=== PATIENT | female | born 1970 | race Caucasian/White ===

== ENCOUNTER 2017-05-29 09:53 | Emergency (ER) | payer MEDICAID ==
[~2017-05-29] VITALS: Ht 152.4 cm; Wt 71.0 kg
[2017-05-29 09:58] VITALS: Ht 152.4 cm; Wt 71.0 kg
[2017-05-29] MEDS ORDERED: ONDANSETRON 4 MG INJ IV STA (10:49)
[2017-05-29] MEDS ORDERED: morphine 4 MG/ML VIAL IV STA (10:49)
[2017-05-29] MEDS ORDERED: SOD CHLORIDE 0.9% 1,000 ML IV STA (10:49)
[2017-05-29] MEDS ORDERED: FAMOTIDINE 20 MG INJ IV ONE (11:00)
[2017-05-29 11:26] LABS: HEMATOCRIT 38.8 % (37.0-47.0); HEMOGLOBIN 13.9 g/dl (12.0-16.0); LYMPHOCYTES % 40.8 % (15.0-51.0); MEAN CORPUSCULAR HEMOGLOBIN 30.8 pg (29.0-33.0); MEAN CORPUSCULAR HGB CONC 35.8 g/dl (32.0-37.0); MEAN CORPUSCULAR VOLUME 85.8 fl (82.0-101.0); MEAN PLATELET VOLUME 9.7 fl (7.4-10.4); NEUTROPHILS % 47.4 % (39.0-77.0); PLATELET COUNT 306 10^3/UL (140-415); RED BLOOD COUNT 4.52 10^6/ul (4.20-5.40); RED CELL DISTRIBUTION WIDTH 12.3 % (11.5-14.5); WHITE BLOOD COUNT 7.1 10^3/ul (4.8-10.8)
[2017-05-29 11:27] LABS: BASOPHIL # 0.1 10^3/ul (0.0-0.1); BASOPHILS % 1.8 % (0.0-2.0); EOSINOPHILS # 0.3 10^3/ul (0.0-0.5); EOSINOPHILS % 3.6 % (0.0-7.0); LYMPHOCYTES # 2.9 10^3/ul (0.8-2.9); MONOCYTE # 0.5 10^3/ul (0.3-0.9); MONOCYTES % 6.3 % (0.0-11.0)
[2017-05-29 11:37] LABS: ADD UMIC YES; UR ASCORBIC ACID NEGATIVE (NEGATIVE); UR BILIRUBIN (Dip) NEGATIVE (NEGATIVE); UR BLOOD (Dip) 2+ mg/dL (NEGATIVE); UR CLARITY CLEAR (CLEAR); UR COLOR YELLOW (YELLOW); UR GLUCOSE (Dip) NEGATIVE (NEGATIVE); UR KETONES (Dip) NEGATIVE (NEGATIVE); UR LEUKOCYTE ESTERASE (Dip) NEGATIVE Leu/ul (NEGATIVE); UR NITRITE (Dip) NEGATIVE (NEGATIVE); UR RBC 6 /HPF (0-5); UR SPECIFIC GRAVITY (Dip) 1.013 (1.003-1.030); UR TOTAL PROTEIN (Dip) NEGATIVE (NEGATIVE); UR UROBILINOGEN (Dip) NEGATIVE (NEGATIVE)
[2017-05-29 11:54] LABS: ALBUMIN 4.3 g/dl (3.3-4.9); ALBUMIN/GLOBULIN RATIO 1.3; BILIRUBIN,INDIRECT 0.3 mg/dl (0-1.1); BILIRUBIN,TOTAL 0.3 mg/dl (0.2-1.3); CALCIUM 9.2 mg/dl (8.4-10.2); CREATININE 0.61 mg/dl (0.44-1.00); POTASSIUM 3.9 mmol/L (3.5-5.1); TOTAL PROTEIN 7.6 g/dl (6.1-8.1)
--- NOTE | 2017-05-29 12:40 | RADRPT ---
PROCEDURE: CT Abdomen and Pelvis without contrast CLINICAL INDICATION: Right lower quadrant pain times 2 days, vomiting TECHNIQUE: Transaxial images were obtained through the abdomen and pelvis on a multi-slice scanner without the intravenous contrast administration. No oral contrast had previously been given. Sagit pérez and coronal re-formations were subsequently reconstructed. One or more of the following dose reduction techniques were used: - Automated exposure control. - Adjustment of the mA and/or kV according to patient size. - Use of iterative reconstruction technique. Radiation dose: CTDIvol = 17.25 mGy; DLP = 945.66 mGy-cm. COMPARISON: No prior studies are available for comparison. FINDINGS: Lung bases: Appear unremarkable except for a a 6 mm calcified granuloma within the medial right lowe r lobe. Liver: The liver is upper normal in size and appears diffusely fatty infiltrated with no focal lesio n. Gallbladder: There is cholelithiasis but the gallbladder wall is not thickened. Bile ducts: The intra and extrahepatic bile ducts are normal in caliber. Pancreas: Appears normal with no mass or inflammation evident. Spleen: Normal in size with no focal lesion. Adrenals: Normal with no mass identified. Kidneys, ureters and bladder: The kidneys are normal in size and there is no mass, pathological calc ification, or hydronephrosis evident. There is no perinephric stranding. The ureters are normal in c aliber and no ureteroliths are identified. The bladder appears unremarkable. Reproductive organs: The uterus deviates to the right of midline. There appear to be tubal ligation clips. No adnexal mass is evident. Stomach and bowel: The stomach appears unremarkable. No there is no evidence of bowel obstruction o r inflammation. Appendix: The vermiform appendix is prominent in caliber measuring 7 mm but no significant inflammat ory changes seen in the adjacent fat. Peritoneum: No free intraperitoneal fluid or air is identified. There is a small fat containing umbi lical hernia. Aorta: Normal in caliber with no aneurysmal dilatation. IVC: Unremarkable. Lymph nodes: No pathologically enlarged nodes are identified. Osseous structures: The osseous elements appear intact. IMPRESSION: 1. The vermiform appendix is prominent in caliber measuring 7 mm. There is no significant inflamma tory change seen in the fat around the appendix. This likely represents a normal variant, but clinic al correlation is indicated to exclude early appendicitis. There is no evidence of bowel obstruction or inflammation. 2. Normal kidneys without evidence of urinary outflow obstruction or ureterolithiasis. The bladder appears unremarkable. 3. Cholelithiasis not associated with gallbladder wall thickening or bile duct dilatation. The panc reas appears normal. 4. Fatty infiltrated liver. 5. There is no free intraperitoneal fluid or air. 6. 6 mm calcified granuloma seen in the medial left lower lobe. Physician Constantin Date Time Electronically viewed and signed by Rebecca Sierra Physician on 05/29/2017 12:40 RH/
[2017-05-29] MEDS ORDERED: ACET325T33 PO (13:42)
[2017-05-29] MEDS ORDERED: ONDA4TAB14 PO (13:42)
[2017-05-29] MEDS ORDERED: DICY10CA60 PO (13:42)
--- NOTE | 2017-05-29 13:48 | ERD ---
ER Documentation Chief Complaint Date/Time DATE: 05/29/17 TIME: 13:44 Chief Complaint RIGHT ABDOMINAL PAIN SINCE YESTERDAY, + VOMITING HPI 37-year-old female patient with no significant past medical history presents the ED complaining of right-sided abdominal pain that started yesterday. Predominantly in the upper and lower right lower quadrant regions. Describes it as sharp. Reports that she has had a few episodes of nonbilious nonbloody vomiting. States that her last menses was on May 22, 2017. Denies any vaginal discharge, vaginal bleeding, dysuria, urgency, frequency, diarrhea, constipation, fever. ROS All systems reviewed and are negative except as per history of present illness. Medications Home Meds Active Scripts Ibuprofen* (Motrin*) 600 Mg Tab, 600 MG PO Q6, #20 TAB Prov:FIONA HARMON MD 05/31/17 Ondansetron (Ondansetron Odt) 8 Mg Tab.rapdis, 8 MG PO Q6H Y for NAUSEA AND/OR VOMITING, #10 TAB Prov:FIONA HARMON MD 05/31/17 Tramadol HCl (Tramadol HCl) 50 Mg Tablet, 50 MG PO Q4 Y for PAIN, #20 TAB Prov:FIONA HARMON MD 05/31/17 Acetaminophen* (Tylenol*) 325 Mg Tablet, 2 TAB PO Q8 Y for PAIN AND OR ELEVATED TEMP, #20 TAB Prov:UNIQUE COYNE PA-C 05/29/17 Ondansetron (Ondansetron Odt) 4 Mg Tab.rapdis, 4 MG PO Q6H Y for NAUSEA AND/OR VOMITING, #10 TAB Prov:UNIQUE COYNE PA-C 05/29/17 Dicyclomine Hcl* (Bentyl*) 10 Mg Capsule, 10 MG PO QID, #20 CAP Prov:UNIQUE COYNE PA-C 05/29/17 Allergies Allergies: Coded Allergies: No Known Allergy (Unverified , 05/29/17) PMhx/Soc Medical and Surgical Hx: pt denies Medical Hx History of Surgery: Yes (Tubal ligation) Hx Alcohol Use: No Hx Substance Use: No Hx Tobacco Use: No Smoking Status: Never smoker Physical Exam Vitals Vital Signs Date Time Temp Pulse Resp B/P Pulse Ox O2 Delivery O2 Flow Rate FiO2 05/29/17 09:58 98.0 87 18 181/95 100 Physical Exam Const: [id number], well-nourished. In no acute distress. Head: Atraumatic, normocephalic Eyes: Normal Conjunctiva without injection. No purulent discharge. ENT: Normal external ear, nose. Moist oropharynx without tonsillar exudates. Non -erythematous pharynx. Uvula midline. No drooling. No trismus. Neck: No cervical midline tenderness. Full range of motion. No meningismus. No cervical lymphadenopathy. No JVD. Resp: Clear to auscultation bilaterally. No wheezing, rhonchi, rales, or crackles. No accessory muscle use. No retractions. Cardio: Regular rate and rhythm. No murmurs, rubs or gallops. Abd: Soft, right upper and lower quadrant abdominal tenderness, non distended. Normal bowel sounds. No palpable masses. No rebound tenderness. No guarding. Negative McBurney's point. Negative psoas sign. Negative obturator sign. Skin: No petechiae or rashes Back: No midline tenderness. No CVA tenderness. Ext: No cyanosis, or edema. Neur: Awake and alert. Normal gait. Normal coordination. Psych: Normal Mood and Affect Results 24 hrs Laboratory Tests Test 05/29/17 11:00 05/29/17 11:15 Urine Color YELLOW Urine Clarity CLEAR Urine pH 7.0 Urine Specific [place] 1.013 Urine Ketones NEGATIVEmg/dL Urine Nitrite NEGATIVEmg/dL Urine Bilirubin NEGATIVEmg/dL Urine Urobilinogen NEGATIVEmg/dL Urine Leukocyte Esterase NEGATIVELeu/ul Urine Microscopic RBC 6/HPF Urine Microscopic WBC 2/HPF Urine Hemoglobin 2+mg/dL Urine Glucose NEGATIVEmg/dL Urine Total Protein NEGATIVEmg/dl White Blood Count 7.110^3/ul Red Blood Count 4.5210^6/ul Hemoglobin 13.9g/dl Hematocrit 38.8% Mean Corpuscular Volume 85.8fl Mean Corpuscular Hemoglobin 30.8pg Mean Corpuscular Hemoglobin Concent 35.8g/dl Red Cell Distribution Width 12.3% Platelet Count 81759^3/UL Mean Platelet Volume 9.7fl Neutrophils % 47.4% Lymphocytes % 40.8% Monocytes % 6.3% Eosinophils % 3.6% Basophils % 1.8% Nucleated Red Blood Cells % 0.0/100WBC Neutrophils # (Manual) 310^3/ul Lymphocytes # 2.910^3/ul Monocytes # 0.510^3/ul Eosinophils # 0.310^3/ul Basophils # 0.110^3/ul Nucleated Red Blood Cells # 0.010^3/ul Sodium Level 143mmol/L Potassium Level 3.9mmol/L Chloride Level 100mmol/L Carbon Dioxide Level 29mmol/L Anion Gap 18 Blood Urea Nitrogen 12mg/dl Creatinine 0.61mg/dl Glucose Level 83mg/dl Calcium Level 9.2mg/dl Total Bilirubin 0.3mg/dl Direct Bilirubin 0.00mg/dl Indirect Bilirubin 0.3mg/dl Aspartate Amino Transf (AST/SGOT) 22IU/L Alanine Aminotransferase (ALT/SGPT) 37IU/L Alkaline Phosphatase 108IU/L Total Protein 7.6g/dl Albumin 4.3g/dl Globulin 3.30g/dl Albumin/Globulin Ratio 1.30 Lipase 111U/L Current Medications Medications (Trade) Dose Ordered Sig/Shaun Route PRN Reason Start Time Stop Time Status Last Admin Dose Admin Sodium Chloride (NS) 1,000 ml @ 1,000 mls/hr Q1H STAT IV 05/29/17 10:49 05/29/17 11:48 DC 05/29/17 11:31 Morphine Sulfate (morphine) 4 mg ONCE STAT IV 05/29/17 10:49 05/29/17 10:51 DC 05/29/17 11:30 Ondansetron HCl (Zofran Inj) 4 mg ONCE STAT IV 05/29/17 10:49 05/29/17 10:51 DC 05/29/17 11:30 Famotidine (Pepcid Iv) 20 mg ONCE ONCE IV 05/29/17 11:00 05/29/17 11:01 DC 05/29/17 11:30 Procedures/MDM This is a 47-year-old female patient with no significant past medical history presents to the ED complaining of abdominal pain and vomiting. Patient is afebrile and nontoxic-appearing. Patient has normal vital signs. Patient was further worked up with CBC, CMP, lipase, UA, urine , CT of abdomen and pelvis without contrast. Patient's pain and symptoms have improved after treatment with 4 mg IV Morphine, 4 mg IV Zofran. CBC: No leukocytosis. No e/o of systemic infection. No e/o anemia. CMP: No e/o severe acidosis, alkalosis, renal failure, diabetic ketoacidosis, liver disease Lipase within normal limits. Urine: No leukocyte esterase, no nitrites, no hematuria. Urine : negative PROCEDURE: CT Abdomen and Pelvis without contrast CLINICAL INDICATION: Right lower quadrant pain times 2 days, vomiting TECHNIQUE: Transaxial images were obtained through the abdomen and pelvis on a multi-slice scanner without the intravenous contrast administration. No oral contrast had previously been given. Sagittal and coronal re-formations were subsequently reconstructed. One or more of the following dose reduction techniques were used: - Automated exposure control. - Adjustment of the mA and/or kV according to patient size. - Use of iterative reconstruction technique. Radiation dose: CTDIvol = 17.25 mGy; DLP = 945.66 mGy-cm. COMPARISON: No prior studies are available for comparison. FINDINGS: Lung bases: Appear unremarkable except for a a 6 mm calcified granuloma within the medial right lower lobe. Liver: The liver is upper normal in size and appears diffusely fatty infiltrated with no focal lesion. Gallbladder: There is cholelithiasis but the gallbladder wall is not thickened. Bile ducts: The intra and extrahepatic bile ducts are normal in caliber. Pancreas: Appears normal with no mass or inflammation evident. Spleen: Normal in size with no focal lesion. Adrenals: Normal with no mass identified. Kidneys, ureters and bladder: The kidneys are normal in size and there is no mass, pathological calcification, or hydronephrosis evident. There is no perinephric stranding. The ureters are normal in caliber and no ureteroliths are identified. The bladder appears unremarkable. Reproductive organs: The uterus deviates to the right of midline. There appear to be tubal ligation clips. No adnexal mass is evident. Stomach and bowel: The stomach appears unremarkable. No there is no evidence of bowel obstruction or inflammation. Appendix: The vermiform appendix is prominent in caliber measuring 7 mm but no significant inflammatory changes seen in the adjacent fat. Peritoneum: No free intraperitoneal fluid or air is identified. There is a small fat containing umbilical hernia. Aorta: Normal in caliber with no aneurysmal dilatation. IVC: Unremarkable. Lymph nodes: No pathologically enlarged nodes are identified. Osseous structures: The osseous elements appear intact. IMPRESSION: 1. The vermiform appendix is prominent in caliber measuring 7 mm. There is no significant inflammatory change seen in the fat around the appendix. This likely represents a normal variant, but clinical correlation is indicated to exclude early appendicitis. There is no evidence of bowel obstruction or inflammation. 2. Normal kidneys without evidence of urinary outflow obstruction or ureterolithiasis. The bladder appears unremarkable. 3. Cholelithiasis not associated with gallbladder wall thickening or bile duct dilatation. The pancreas appears normal. 4. Fatty infiltrated liver. 5. There is no free intraperitoneal fluid or air. 6. 6 mm calcified granuloma seen in the medial left lower lobe. Patient likely has biliary colic due to a confirmed gallstone. Low suspicion for gastritis, GERD, peptic ulcer disease, cholecystitis, choledocholithiasis, cholangitis, pancreatitis, appendicitis, bowel obstruction, ileus, volvulus, nephrolithiasis, pyelonephritis, hepatitis, perforated viscus, diverticulitis, abdominal hernia, acute abdomen, mesenteric ischemia or other emergent conditions. This case was discussed with my supervising physician Dr. Harmon who agreed with the management and discharge plan. Discharge medications: Tylenol, Zofran, Bentyl Follow up with primary care physician in 1-2 days for referral to a general surgeon. Instructed patient to return to the ED sooner for any worsening symptoms. Patient's questions were answered. Patient understood and agreed with discharge plan. Patient discharged stable. Departure Diagnosis: Primary Impression: Abdominal pain Abdominal location: unspecified location Qualified Code: R10.9 - Abdominal pain, unspecified location Condition: Stable Patient Instructions: Abdominal Pain Referrals: [facility] YOU HAVE RECEIVED A MEDICAL SCREENING EXAM AND THE RESULTS INDICATE THAT YOU DO NOT HAVE A CONDITION THAT REQUIRES URGENT TREATMENT IN THE EMERGENCY DEPARTMENT. FURTHER EVALUATION AND TREATMENT OF YOUR CONDITION CAN WAIT UNTIL YOU ARE SEEN IN YOUR DOCTORS OFFICE WITHIN THE NEXT 1-2 DAYS. IT IS YOUR RESPONSIBILITY TO MAKE AN APPOINTMENT FOR FOLOW-UP CARE. IF YOU HAVE A PRIMARY DOCTOR --you should call your primary doctor and schedule an appointment IF YOU DO NOT HAVE A PRIMARY DOCTOR YOU CAN CALL OUR PHYSICIAN REFERRAL HOTLINE AT IF YOU CAN NOT AFFORD TO SEE A PHYSICIAN YOU CAN CHOSE FROM THE FOLLOWING [facility] [address] [facility]. [facility] [address] [facility] [address] [facility] [address] [facility] [address] [facility]. [facility]. [address] [facility]. [facility] YOU HAVE RECEIVED A MEDICAL SCREENING EXAM AND THE RESULTS INDICATE THAT YOU DO NOT HAVE A CONDITION THAT REQUIRES URGENT TREATMENT IN THE EMERGENCY DEPARTMENT. FURTHER EVALUATION AND TREATMENT OF YOUR CONDITION CAN WAIT UNTIL YOU ARE SEEN IN YOUR DOCTORS OFFICE WITHIN THE NEXT 1-2 DAYS. IT IS YOUR RESPONSIBILITY TO MAKE AN APPOINTMENT FOR FOLOW-UP CARE. IF YOU HAVE A PRIMARY DOCTOR --you should call your primary doctor and schedule and appointment IF YOU DO NOT HAVE A PRIMARY DOCTOR YOU CAN CALL OUR PHYSICIAN REFERRAL HOTLINE AT . IF YOU CAN NOT AFFORD TO SEE A PHYSICIAN YOU CAN CHOSE FROM THE FOLLOWING [facility] INSTITUTIONS: [facility] [address] [place] [address] [facility] [address] [place] [address] [facility] + [facility] [address] [place] [address] [facility] URGENT CARE/SPECIALTIES Additional Instructions: Llame al doctor MAANA y agustín jostin ANISHA PARA DENTRO DE 2-3 MARCH.Dgale a la secretaria que nosotros le instruimos hacer esta anisha.Avise o llame si gauthier condicin se empeora antes de la anisha. Regresa aqui si peor o no mejor. UNIQUE COYNE PA-C May 29, 2017 13:48
[2017-05-29 14:30] VITALS: BP 138/83; PULSE 78; RESP 20
== END 2017-05-29 14:30 | disposition home or self-care (01) ==
LOC: FTE 09:53
DX: R10.31 Right lower quadrant pain (principal); R11.10 Vomiting, unspecified; R10.11 Right upper quadrant pain
CPT/HCPCS: 36415; 74176; 80053; 81001; 83690; 85025; 96374; 96375; J2270; J2405; J7030; Z7502; Z7610

== ENCOUNTER 2017-05-31 13:17 | Emergency (ER) | payer MEDICAID ==
[~2017-05-31] VITALS: Wt 70.5 kg
[~2017-05-31 13:17] MED LIST: ACET325T33 PO; DICY10CA60 PO; ONDA4TAB14 PO
[2017-05-31] MEDS ORDERED: KETOROLAC 30 MG INJ IV STA (14:44)
[2017-05-31] MEDS ORDERED: SOD CHLORIDE 0.9% 1,000 ML IV STA (14:44)
[2017-05-31] MEDS ORDERED: ONDANSETRON 4 MG INJ IV STA (14:44)
[2017-05-31] MEDS ORDERED: morphine 4 MG/ML VIAL IV STA (14:44)
[2017-05-31 15:24] LABS: ADD UMIC YES; UR ASCORBIC ACID NEGATIVE (NEGATIVE); UR BILIRUBIN (Dip) NEGATIVE (NEGATIVE); UR BLOOD (Dip) 2+ mg/dL (NEGATIVE); UR CLARITY CLEAR (CLEAR); UR COLOR YELLOW (YELLOW); UR GLUCOSE (Dip) NEGATIVE (NEGATIVE); UR KETONES (Dip) NEGATIVE (NEGATIVE); UR LEUKOCYTE ESTERASE (Dip) NEGATIVE Leu/ul (NEGATIVE); UR NITRITE (Dip) NEGATIVE (NEGATIVE); UR RBC 4 /HPF (0-5); UR TOTAL PROTEIN (Dip) NEGATIVE (NEGATIVE); UR UROBILINOGEN (Dip) NEGATIVE (NEGATIVE)
[2017-05-31 15:25] LABS: BASOPHIL # 0.1 10^3/ul (0.0-0.1); BASOPHILS % 1.3 % (0.0-2.0); EOSINOPHILS # 0.2 10^3/ul (0.0-0.5); EOSINOPHILS % 2.8 % (0.0-7.0); HEMATOCRIT 39.3 % (37.0-47.0); LYMPHOCYTES # 2.3 10^3/ul (0.8-2.9); LYMPHOCYTES % 34.2 % (15.0-51.0); MEAN CORPUSCULAR HEMOGLOBIN 30.5 pg (29.0-33.0); MEAN CORPUSCULAR HGB CONC 35.6 g/dl (32.0-37.0); MEAN CORPUSCULAR VOLUME 85.6 fl (82.0-101.0); MEAN PLATELET VOLUME 9.8 fl (7.4-10.4); MONOCYTE # 0.4 10^3/ul (0.3-0.9); MONOCYTES % 6.5 % (0.0-11.0); NEUTROPHILS % 54.9 % (39.0-77.0); PLATELET COUNT 297 10^3/UL (140-415); RED BLOOD COUNT 4.59 10^6/ul (4.20-5.40); RED CELL DISTRIBUTION WIDTH 12.4 % (11.5-14.5); WHITE BLOOD COUNT 6.8 10^3/ul (4.8-10.8)
--- NOTE | 2017-05-31 15:33 | RADRPT ---
PROCEDURE: Abdominal Ultrasound (right upper quadrant). CLINICAL INDICATION: Abdominal pain TECHNIQUE: Multiple real-time longitudinal and transverse images of the right upper quadrant of th e abdomen were acquired utilizing a curved array transducer. Images were reviewed on a high-resoluti on PACS workstation. COMPARISON: CT abdomen pelvis 05/29/2017 FINDINGS: The liver demonstrates increased echogenicity consistent with fatty infiltration. The liver is mild ly enlarged. No focal masses are identified. There is no evidence of intra or extrahepatic ductal dilatation. The common bile duct measures 2.0 mm in diameter. Multiple gallstones are identified wi thin the gallbladder. There is no gallbladder wall thickening. The visualized portions of the pancreas are unremarkable with obscuration of the tail of the pancrea s. No free fluid is identified. There is no evidence of right hydronephrosis or renal calcification. The right kidney measures 9.8 cm in length. The visualized portions of the aorta and inferior vena cava are within normal limits. IMPRESSION: 1. Cholelithiasis. 2. Enlarged, fatty liver. RPTAT: KK .Jose Enrique Daily MD, MD Date Time Electronically viewed and signed by .Jose Enrique Daily MD, MD on 05/31/2017 15:33 .B/
[2017-05-31 15:53] LABS: ALBUMIN 4.6 g/dl (3.3-4.9); ALBUMIN/GLOBULIN RATIO 1.27; BILIRUBIN,INDIRECT 0.7 mg/dl (0-1.1); BILIRUBIN,TOTAL 0.7 mg/dl (0.2-1.3); CALCIUM 9.1 mg/dl (8.4-10.2); CREATININE 0.67 mg/dl (0.44-1.00); POTASSIUM 3.8 mmol/L (3.5-5.1); TOTAL PROTEIN 8.2 g/dl (6.1-8.1)
[2017-05-31] MEDS ORDERED: ONDA8TAB14 PO (16:05)
[2017-05-31] MEDS ORDERED: TRAM50TA2 PO (16:05)
[2017-05-31] MEDS ORDERED: IBUP-1542 PO (16:05)
--- NOTE | 2017-05-31 16:10 | ERD ---
ER Documentation Chief Complaint Date/Time DATE: 05/31/17 TIME: 16:07 Chief Complaint r. sided abd pain w n/v HPI This 47-year-old female presents with right upper side abdominal pain and vomiting last 2 days. She was seen here 2 days ago diagnosed with gallstones and was well briefly until return of pain and vomiting. She denies fevers or lower abdominal pain. She denies previous history of gallstones or similar pain ROS All systems reviewed and are negative except as per history of present illness. Medications Home Meds Active Scripts Ibuprofen* (Motrin*) 600 Mg Tab, 600 MG PO Q6, #20 TAB Prov:FIONA WASHINGTON MD 05/31/17 Ondansetron (Ondansetron Odt) 8 Mg Tab.rapdis, 8 MG PO Q6H Y for NAUSEA AND/OR VOMITING, #10 TAB Prov:FIONA WASHINGTON MD 05/31/17 Tramadol HCl (Tramadol HCl) 50 Mg Tablet, 50 MG PO Q4 Y for PAIN, #20 TAB Prov:FIONA WASHINGTON MD 05/31/17 Acetaminophen* (Tylenol*) 325 Mg Tablet, 2 TAB PO Q8 Y for PAIN AND OR ELEVATED TEMP, #20 TAB Prov:UNIQUE COYNE PA-C 05/29/17 Ondansetron (Ondansetron Odt) 4 Mg Tab.rapdis, 4 MG PO Q6H Y for NAUSEA AND/OR VOMITING, #10 TAB Prov:UNIQUE COYNE PA-C 05/29/17 Dicyclomine Hcl* (Bentyl*) 10 Mg Capsule, 10 MG PO QID, #20 CAP Prov:UNIQUE COYNE PA-C 05/29/17 Allergies Allergies: Coded Allergies: No Known Allergy (Unverified , 05/29/17) PMhx/Soc History of Surgery: Yes (Tubal ligation) Hx Alcohol Use: No Hx Substance Use: No Hx Tobacco Use: No Smoking Status: Never smoker Physical Exam Vitals Vital Signs Date Time Temp Pulse Resp B/P Pulse Ox O2 Delivery O2 Flow Rate FiO2 05/31/17 13:20 98.9 82 20 156/74 98 Physical Exam Const: [] Alert, [id number] per Head: Atraumatic Eyes: Normal Conjunctiva ENT: Normal External Ears, Nose and Mouth. Neck: Full range of motion..~ No meningismus. Resp: Clear to auscultation bilaterally Cardio: Regular rate and rhythm, no murmurs Abd: Soft, right upper quadrant tenderness without rebound. No tenderness at McBurney's point., non distended. Normal bowel sounds Skin: No petechiae or rashes Back: No midline or flank tenderness Ext: No cyanosis, or edema Neur: Awake and alert Psych: Normal Mood and Affect Result Diagram: 05/31/17 1505 05/31/17 1505 Results 24 hrs Laboratory Tests Test 05/31/17 14:50 05/31/17 15:05 Urine Color YELLOW Urine Clarity CLEAR Urine pH 6.0 Urine Specific [place] 1.010 Urine Ketones NEGATIVEmg/dL Urine Nitrite NEGATIVEmg/dL Urine Bilirubin NEGATIVEmg/dL Urine Urobilinogen NEGATIVEmg/dL Urine Leukocyte Esterase NEGATIVELeu/ul Urine Microscopic RBC 4/HPF Urine Microscopic WBC 1/HPF Urine Hemoglobin 2+mg/dL Urine Glucose NEGATIVEmg/dL Urine Total Protein NEGATIVEmg/dl White Blood Count 6.810^3/ul Red Blood Count 4.5910^6/ul Hemoglobin 14.0g/dl Hematocrit 39.3% Mean Corpuscular Volume 85.6fl Mean Corpuscular Hemoglobin 30.5pg Mean Corpuscular Hemoglobin Concent 35.6g/dl Red Cell Distribution Width 12.4% Platelet Count 42123^3/UL Mean Platelet Volume 9.8fl Neutrophils % 54.9% Lymphocytes % 34.2% Monocytes % 6.5% Eosinophils % 2.8% Basophils % 1.3% Nucleated Red Blood Cells % 0.0/100WBC Neutrophils # (Manual) 410^3/ul Lymphocytes # 2.310^3/ul Monocytes # 0.410^3/ul Eosinophils # 0.210^3/ul Basophils # 0.110^3/ul Nucleated Red Blood Cells # 0.010^3/ul Sodium Level 139mmol/L Potassium Level 3.8mmol/L Chloride Level 101mmol/L Carbon Dioxide Level 27mmol/L Anion Gap 15 Blood Urea Nitrogen 10mg/dl Creatinine 0.67mg/dl Glucose Level 88mg/dl Calcium Level 9.1mg/dl Total Bilirubin 0.7mg/dl Direct Bilirubin 0.00mg/dl Indirect Bilirubin 0.7mg/dl Aspartate Amino Transf (AST/SGOT) 23IU/L Alanine Aminotransferase (ALT/SGPT) 40IU/L Alkaline Phosphatase 93IU/L Total Protein 8.2g/dl Albumin 4.6g/dl Globulin 3.60g/dl Albumin/Globulin Ratio 1.27 Lipase 80U/L Current Medications Medications (Trade) Dose Ordered Sig/Shaun Route PRN Reason Start Time Stop Time Status Last Admin Dose Admin Sodium Chloride (NS) 1,000 ml @ 1,000 mls/hr Q1H STAT IV 05/31/17 14:44 05/31/17 15:43 DC 05/31/17 15:09 Morphine Sulfate (morphine) 4 mg ONCE STAT IV 05/31/17 14:44 05/31/17 14:47 DC Ondansetron HCl (Zofran Inj) 4 mg ONCE STAT IV 05/31/17 14:44 05/31/17 14:47 DC 05/31/17 15:09 Ketorolac Tromethamine (Toradol) 30 mg ONCE STAT IV 05/31/17 14:44 05/31/17 14:47 DC 05/31/17 15:10 Procedures/MDM Patient is given morphine 4 mg IV Toradol 30 mg IV and Zofran 4 mg IV. CBC and CMP and lipase normal Quadrant ultrasound shows gallstones without evidence of obstruction or cholecystitis. Patient felt better after observation treatment. Patient presents with signs and symptoms of biliary colic without evidence of obstruction, cholecystitis, signs of appendicitis, obstruction, acute abdomen, UTI or pyelonephritis. She will treated with tramadol, and Zofran ibuprofen and primary care and general surgery follow-up. The patient was stable with no new complaints during the ER course. Clinically, there is no current evidence to suggest meningitis, sepsis, acute abdomen, pneumonia, acute coronary syndrome , pulmonary embolism, or any other emergent condition appearing to require further evaluation or hospitalization. The patient should certainly return for any new or worsening symptoms per the aftercare instructions. They should otherwise follow-up with her primary care doctor for reevaluation this week. Disclaimer: Inadvertent spelling and grammatical errors are likely due to EHR/ dictation software use and do not reflect on the overall quality of patient care. Also, please note that the electronic time recorded on this note does not necessarily reflect the actual time of the patient encounter. Departure Diagnosis: Primary Impression: Gallstones Condition: Stable Patient Instructions: Biliary Colic With Gallstone (Confirmed) Referrals: OSBALDO MURPHY M.D., THOMAS MD Additional Instructions: EXAMINES EL MISMO SIN INFECCION O OBSTRUCCION. NO COME GRAZA. Va al gauthier doctor/ specialista para mas evaluacon en el proximo semana. posiblemente necesita autorizado de gauthier doctor primario para specialista. Regresa para fiebre, o mas o nueva simptomas. FIONA WASHINGTON MD May 31, 2017 16:07
[2017-05-31 16:35] VITALS: BP 132/67; PULSE 69; RESP 20; TEMP 98
== END 2017-05-31 16:37 | disposition home or self-care (01) ==
LOC: FTE 13:17
DX: K80.20 Calculus of gallbladder without cholecystitis without obstruction (principal); R11.2 Nausea with vomiting, unspecified
CPT/HCPCS: 36415; 76705; 80053; 81001; 83690; 85025; 96361; 96374; 96375; J1885; J2405; J7030; Z7502